=== PATIENT | female | born 1995 | race Caucasian/White ===

== ENCOUNTER 2016-07-11 08:53 | Emergency (ER) | payer BC, OTHER ==
[2016-07-11 09:17] VITALS: RESP 16; TEMP 97.5
--- NOTE | 2016-07-11 09:27 | PDOC ---
Ear Complaints HPI - General Chief Complaint: Ear Problem / Injury Stated Complaint: RIGHT EAR PRESSURE Date Seen by Provider: 07/11/16 Time Seen by Provider: 09:14 Source: POSITIVE: Patient Exam Limitations: POSITIVE: No limitations Nurse's Notes Reviewed & Considered: Yes - History of Present Illness Initial Comments: Patient comes in today with chief complaint of pain in her bilateral ears right greater than left. She was recently swimming yesterday, now with pressure in her ears and difficulty hearing. Location: Both Ears Timing: REPORTS: Gradual, Getting Worse Severity: Mild Quality: REPORTS: Dullness Context: REPORTS: Other (swimming) Modifying Factors: REPORTS: None Associated Symptoms: REPORTS: Hearing Loss Similar Symptoms Previously: No Recent Care Received: REPORTS: Denies Any Prior Injuries Related to Current Complaint?: No - Patient Home Medications Home Medications: Home Medications Levothyroxine Sodium 88 mcg PO DAILY 07/11/16 - Patient Allergies Allergies/Adverse Reactions: Allergies Allergy/AdvReac Type Severity Reaction Status Date / Time No Known Allergies Allergy Verified 07/11/16 08:59 Past Medical History - heen HEENT History: Denies History Cardiovascular History: Denies History Respiratory History: Denies History Gastrointestinal History: GERD Additional Gastrointestinal History: excessive acid Genitourinary History: Denies History Endocrine History: Hypothyroidism Musculoskeletal History: Denies History Prosthesis or Implant: No Neurological History: Denies History Blood Disorders: Denies History Psychiatric History: Denies History Female Reproductive History: Denies History LMP: 19TH Obstetrical History: Labor Cancer History: Denies History In Past Year Been Physically Harmed or Verbally Threatened: No History of MDRO: No Tobacco Use: Never Smoker Alcohol Use: None Substance Use Type: None Previous Surgical History: Yes Type / Date of Surgery: L WRIST, TONSILS AND ADENOIDS Anesthesia Reactions: No Significant Family History: No pertinent family hx ROS - Limitations ROS Limitations: No Limitations Constitution: REPORTS: Denies Symptoms Cardiovascular: REPORTS: Denies Cardiac Symptoms Respiratory: REPORTS: Denies Resp Symptoms Neurological: REPORTS: Denies Neuro Symptoms Gastrointestinal: REPORTS: Denies GI Symptoms Endocrine: REPORTS: Denies Symptoms Musculoskeletal: REPORTS: Denies MS Symptoms Genitourinary: REPORTS: Denies Symptoms Eyes: REPORTS: Denies Symptoms ENT: REPORTS: Hearing Loss Skin: REPORTS: Denies Skin Symptoms Lympathic: REPORTS: Denies Lympathic Symptoms Immunologic: POSITIVE: Denies Symptoms Psychiatric: POSITIVE: Denies Psych Symptoms Ear Complaint Exam - General Appearance General Appearance: POSITIVE: Alert, Cooperative, No Acute Distress, No Evidence of Trauma - HEENT Head / Face: POSITIVE: Atraumatic, Normal Inspection, No Facial Swelling Eyes: POSITIVE: Inspection Normal, PERRL, EOM's Intact, Eyelids Uninjured, Sclera Normal Ears: POSITIVE: TM Obscured (Bilateral TM obscured from cerumen) Nose: POSITIVE: Inspection Normal, No Apparent Trauma, Nares Normal, No CSF Leak Oropharynx: POSITIVE: External Inspection Nml, Pharynx Inspect. Nml, Airway Intact, Voice Normal, Moist Mucous Membranes Dental: POSITIVE: No Dental Injury - Respiratory Respiratory: POSITIVE: No Respiratory Distress, Breath Sounds Normal, Chest Non- Tender - Cardiovascular Cardiovascular: POSITIVE: Regular Rate and Rhythm, Heart Sounds Normal - Abdomen Abdomen: Soft: (All Quadrants), Normal Bowel Sounds: (All Quadrants), Denies Tenderness: (All Quadrants) - Skin Skin: POSITIVE: Normal Color, No Skin Rash - Neurological / Psychological Neurological: POSITIVE: Affect Apporpriate, Oriented X3 Procedure - Ear Procedure Ear Procedure: POSITIVE: Removal of Cerumen, Right, Left, With Ear Curette Ear Medications Instilled: POSITIVE: Right, Left, Other (Ciprodex otic drops.) Ear Complaints Progress - Patient's Progress Pain Medication Addressed: POSITIVE: No Status: POSITIVE: Improved MDM / ED Course: Patient had sodium and curetted free from her bilateral external auditory canal. There was some small amount of bleeding present postprocedural. She received Ciprodex bilateral external auditory canals. Instructions for Ciprodex twice a day for 3 days. Assessment: Hearing loss secondary to cerumen impaction. Hearing was improved after curetted of cerumen. Next Plan: Discharge home, Ciprodex twice a day for 3 days. - Consult Counseled: POSITIVE: Patient, Family, RE: DX, RE: Need for F/U Patient Care Time - Estimated PCT Patient Care Time (In Minutes): 15 Vital Signs - VS Reviewed Vital Signs Reviewed: Yes Discharge Clinical Impression: Excessive cerumen in ear canal Discharge Disposition: Discharged to Home Condition: Good Patient Instructions Given at Discharge: Cerumen Impaction (ED)
[2016-07-11] MEDS ORDERED: CIPROFLOXACIN HCL/DEXAMETH 7.5 ML OTIC SUSP ONE (09:34)
[2016-07-11] MEDS ORDERED: CIPROFLOXACIN HCL/DEXAMETH 7.5 ML OTIC SUSP EACH EAR SCH (21:00)
== END 2016-07-11 09:57 | disposition home or self-care (01) ==
LOC: ER 08:53
DX: H61.23 Impacted cerumen, bilateral (principal); H92.03 Otalgia, bilateral
CPT/HCPCS: 69210; 99282

== ENCOUNTER 2016-07-26 20:04 | Emergency (ER) | payer BC, OTHER ==
[2016-07-26] MEDS ORDERED: HYDROcodone-APAP 5 MG -325 MG TABLET PO ONE (20:13)
[2016-07-26] MEDS ORDERED: LORazepam 1 MG TABLET PO ONE (20:13)
[2016-07-26] MEDS ORDERED: DIPH,PERTUSS,TET(ADACEL) VAC/PF 0.5 ML (Tdap) IM ONE (20:17)
--- NOTE | 2016-07-26 20:19 | PDOC ---
Neck Pain / Injury HPI - General Chief Complaint: Neck / Back Complaint Stated Complaint: NECK PAIN/INJURY Date Seen by Provider: 07/26/16 Time Seen by Provider: 20:14 Source: POSITIVE: Patient, Spouse Exam Limitations: POSITIVE: No limitations Nurse's Notes Reviewed & Considered: Yes - History of Present Illness Initial Comments: Patient comes in today complaining of left-sided neck pain. Patient was helping her nima at approximately 1900 hrs.. She was pulling on cable attached to a limb while he was cutting the limb. She was attempting to keep him from falling on the neighbor's house. Something gave way suddenly, she stumbled backwards hitting the middle finger of her left hand resulting in a small abrasion at the level of her fingernail, hit the right side of her head on the grill that was present and then had left-sided neck pain. She denies any distal neurological signs such as tingling or weakness. She is not current on her tetanus status. Body Location Affected: REPORTS: Neck Timing: REPORTS: Abrupt Severity: Moderate Quality: REPORTS: "Pain", Stabbing Duration: 1 hour Context: REPORTS: Activity, Fall Recent Injury: REPORTS: No Location at Time of Onset: REPORTS: Home Concurrent Injuries: REPORTS: Neck, Other (Abrasion on her finger.) Modifying Factors: improves with: Movement (Movement makes the pain worse), Rest (Rest makes the pain better) Associated Symptoms: REPORTS: Denies symptoms Similar Symptoms Previously: No Recent Care Received: REPORTS: Denies Any Prior Injuries Related to Current Complaint?: No - Patient Home Medications Home Medications: Home Medications Levothyroxine Sodium 88 mcg PO DAILY 07/11/16 - Patient Allergies Allergies/Adverse Reactions: Allergies Allergy/AdvReac Type Severity Reaction Status Date / Time No Known Allergies Allergy Verified 07/26/16 20:12 Past Medical History - heen HEENT History: Denies History Cardiovascular History: Denies History Respiratory History: Denies History Gastrointestinal History: GERD Additional Gastrointestinal History: excessive acid Genitourinary History: Denies History Endocrine History: Hypothyroidism Musculoskeletal History: Denies History Prosthesis or Implant: No Neurological History: Denies History Blood Disorders: Denies History Psychiatric History: Denies History Cancer History: Denies History History of MDRO: No Alcohol Use: None Substance Use Type: None Previous Surgical History: Yes Type / Date of Surgery: L WRIST, TONSILS AND ADENOIDS Anesthesia Reactions: No Significant Family History: No pertinent family hx ROS - Limitations ROS Limitations: No Limitations Constitution: REPORTS: Denies Symptoms Cardiovascular: REPORTS: Denies Cardiac Symptoms Respiratory: REPORTS: Denies Resp Symptoms Neurological: REPORTS: Denies Neuro Symptoms Gastrointestinal: REPORTS: Denies GI Symptoms Endocrine: REPORTS: Denies Symptoms Musculoskeletal: REPORTS: Neck Pain Genitourinary: REPORTS: Denies Symptoms Eyes: REPORTS: Denies Symptoms ENT: REPORTS: Denies Symptoms Skin: REPORTS: Denies Skin Symptoms Lympathic: REPORTS: Denies Lympathic Symptoms Immunologic: POSITIVE: Denies Symptoms Psychiatric: POSITIVE: Denies Psych Symptoms Neck Pain/Injury Exam - General Appearance General Appearance: REPORTS: Alert, Cooperative, No Evidence of Trauma, Moderate Distress - HEENT HEENT: POSITIVE: Head Inspection Nml, Eyes Inspection Nml, Ears Inspection Nml, Nose Inspection Nml, Oral/Dental Inspect. Nml, Pharynx Inspect. Nml, PERRL, EOMI - Pupil Size Pupil Size: 4 mm: Bilateral - Neck Neck: POSITIVE: Muscle Spasm (Paraspinal muscles of the left neck and the sternocleidomastoid on the left.), Decreased ROM - Back Back: REPORTS: Normal Inspection, No CVA Tenderness, Non Tender, Painless ROM - Respiratory / CVS Respiratory / CVS: POSITIVE: No Respiratory Distress - Abdomen Abdomen: Denies Tenderness: (All Quadrants) - Skin Skin: REPORTS: Intact, Normal For Race, Warm, Dry, No Rash - Extremities Extremity Assessment: Normal ROM: (ALL), No Edema: (ALL), Normal Inspection: ( ALL) - Neurological / Psychological Neuro / Psych: POSITIVE: Oriented x3, Motor Normal, Sensation Normal, Upper And Bottom Lacer Hand Normal, Upper And Bottom Lacer Hand Symmetrical Neck Pain/Injury Progress - Patient's Progress Pain Medication Addressed: POSITIVE: Yes Re-Examine Time: 21:20 Status: POSITIVE: Improved MDM / ED Course: Patient was examined, she received a tetanus update, Campbell, and Ativan. Her symptoms significantly improved. Assessment: Neck spasm. Next Plan: Discharge home prescription for Campbell and Ativan provided. - Consult Counseled: POSITIVE: Patient, Family, RE: DX Patient Care Time - Estimated PCT Patient Care Time (In Minutes): 20 Vital Signs - Recent Vital Signs Vital Signs: Vital Signs (Last 8 hours) Temp Pulse Resp BP Pulse Ox 07/26/16 20:04 98.0 F 88 16 119/88 98 - VS Reviewed Vital Signs Reviewed: Yes Discharge Clinical Impression: Neck pain Discharge Disposition: Discharged to Home Condition: Stable Patient Instructions Given at Discharge: Cervical Strain (ED)
[2016-07-26 20:55] VITALS: RESP 16; TEMP 98
[2016-07-26] MEDS ORDERED: LORazepam 1 MG TABLET PO SCH (21:30)
[2016-07-26] MEDS ORDERED: HYDROcodone-APAP 5 MG -325 MG TABLET PO SCH (21:30)
== END 2016-07-26 22:00 | disposition home or self-care (01) ==
LOC: ER 20:04
DX: M54.2 Cervicalgia (principal); S60.413A Abrasion of left middle finger, initial encounter; W01.0XXA Fall on same level from slipping, tripping and stumbling without subsequent striking against object, initial encounter
CPT/HCPCS: 90471; 99282

== ENCOUNTER 2016-11-21 14:42 | Emergency (ER) | payer BC, OTHER ==
[2016-11-21 15:05] LABS: BILIRUBIN,URINE NEGATIVE (NEG); CLARITY,URINE Slightly Cloudy (CLEAR); COLOR,URINE YELLOW; GLUCOSE, URINE (UA) NEGATIVE (NEG); NITRATE,URINE NEGATIVE (NEG); OCCULT BLOOD,URINE LARGE (NEG); PROTEIN,URINE 100 mg/dl (NEG); UROBILINOGEN,URINE 0.2 EU/dL (0.2)
--- NOTE | 2016-11-21 15:06 | PDOC ---
Female Problem HPI - General Chief Complaint: Genitourinary Complaint Stated Complaint: I think i have a UTI Date Seen by Provider: 11/21/16 Time Seen by Provider: 15:02 Source: POSITIVE: Patient Exam Limitations: POSITIVE: No limitations Nurse's Notes Reviewed & Considered: Yes - History of Present Illness Initial Comments: This very pleasant 21-year-old female is complaining of dysuria. Patient with history of several days of increasing pain with urination comes in for evaluation. She had initially taken [id number] Azo and stopped yesterday. Subsequent to stopping Azo she said increasing dysuria. She denies any fever chills sweats, no nausea vomiting or diarrhea, no chest pain or coughs , no shortness of breath, no rashes, no hematuria. He denies any back pain or flank pain. Body Location Affected: REPORTS: Abdomen Timing: REPORTS: Gradual Duration: <24 hours Severity: Moderate Quality: REPORTS: Cramping, "Pain", Sharpness Location of Pain: REPORTS: Pelvic Pressure, Burning : 1 Para: 1 Sexual History: REPORTS: Active Urinary Symptoms: REPORTS: Frequent Urination, Discomfort w/ Urination, Burning w/ Urination, Urinary Urgency, Painful Urination Recent Care Received: REPORTS: Denies Any Prior Injuries Related to Current Complaint?: No - Patient Home Medications Home Medications: Home Medications Levothyroxine Sodium 88 mcg PO DAILY 07/11/16 - Patient Allergies Allergies/Adverse Reactions: Allergies Allergy/AdvReac Type Severity Reaction Status Date / Time No Known Allergies Allergy Verified 07/26/16 20:12 Past Medical History - heen HEENT History: Denies History Cardiovascular History: Denies History Respiratory History: Denies History Gastrointestinal History: GERD Additional Gastrointestinal History: excessive acid Genitourinary History: Other (please comment) Additional Genitourinary History: Patient states she feels like her bladder is full, and she has pain with uriniation. Endocrine History: Hypothyroidism Musculoskeletal History: Denies History Prosthesis or Implant: No Neurological History: Denies History Blood Disorders: Denies History Psychiatric History: Denies History Cancer History: Denies History In Past Year Been Physically Harmed or Verbally Threatened: No History of MDRO: No Tobacco Use: Never Smoker Alcohol Use: None Substance Use Type: None Previous Surgical History: Yes Type / Date of Surgery: L WRIST, TONSILS AND ADENOIDS Anesthesia Reactions: No Significant Family History: No pertinent family hx ROS - Limitations ROS Limitations: No Limitations Constitution: REPORTS: Denies Symptoms Cardiovascular: REPORTS: Denies Cardiac Symptoms Respiratory: REPORTS: Denies Resp Symptoms Neurological: REPORTS: Denies Neuro Symptoms Gastrointestinal: REPORTS: Denies GI Symptoms Endocrine: REPORTS: Denies Symptoms Musculoskeletal: REPORTS: Denies MS Symptoms Genitourinary: REPORTS: Dysuria Eyes: REPORTS: Denies Symptoms ENT: REPORTS: Denies Symptoms Skin: REPORTS: Denies Skin Symptoms Lympathic: REPORTS: Denies Lympathic Symptoms Immunologic: POSITIVE: Denies Symptoms Psychiatric: POSITIVE: Denies Psych Symptoms Female Genitourinary Exam - General Appearance General Appearance: POSITIVE: Alert, Cooperative, No Acute Distress, No Evidence of Trauma - HEENT HEENT: POSITIVE: Head Inspection Nml, Eyes Inspection Nml, Ears Inspection Nml, Nose Inspection Nml, Oral/Dental Inspect. Nml, Pharynx Inspect. Nml, PERRL, EOMI - Neck Neck: POSITIVE: Normal Inspection, No Apparent Injury - Respiratory Respiratory: POSITIVE: No Respiratory Distress, Breath Sounds Normal, Chest Non- Tender - Cardiovascular Cardiovascular: POSITIVE: Regular Rate and Rhythm, Heart Sounds Normal, Equal Pulses, Strong Pulses - Abdomen Abdomen: POSITIVE: Soft, Normal Bowel Sounds, Tenderness (Suprapubic and mild right lower quadrant tenderness.) - Back Back: POSITIVE: Normal Inspection - Skin Skin: POSITIVE: Intact, Normal For Race, Warm, Dry, No Rash - Extremities Extremity: Non-Tender: (All Extremities), Normal ROM: (All Extremities), Normal Inspection: (All Extremities) - Neurological / Psychological Neurological: POSITIVE: Oriented X3, tipple tender Normal As Tested, Motor Normal, Sensation Normal, 5, 6 Female Genitourinary Progress - Results Reviewed by me Lab Results Reviewed: Yes Lab Results:: Laboratory Results 11/21/16 Range/Units 14:45 Ur Collection Type Clean catch urine Urine Color Yellow Urine Clarity Slightly cloudy (CLEAR) Urine pH 7.0 (5.0-8.5) Ur Specific [place] 1.025 (1.005-1.030) Urine Protein 100 (NEG) mg/dl Urine Glucose (UA) Negative (NEG) mg/dL Urine Ketones Negative (NEG) Urine Occult Blood Large H (NEG) Urine Nitrate Negative (NEG) Urine Bilirubin Negative (NEG) Urine Urobilinogen 0.2 (0.2) EU/dL Ur Leukocyte Esterase Small (NEG) Urine RBC 10-15 (NONE) /hpf Urine WBC 25-30 (NONE) Ur Squamous Epith Cells Few (NONE) Ur Renal Epithelial Cell None (NONE) Urine Crystals None Urine Bacteria Moderate (NONE) Urine Casts None (NONE) Urine Mucus Few (NONE) Urine Trichomonas None (NONE) Urine Yeast None (NONE) Ur Culture Indicated? Culture set - Patient's Progress Pain Medication Addressed: POSITIVE: Not Applicable Re-Examine Time: 15:27 Status: POSITIVE: Improved MDM / ED Course: Patient was examined, he urine sent to the lab for laboratory studies. Findings: Urinalysis shows bacteria present and leukocyte esterase. Assessment: Urinary tract infection. Plan: Macrobid twice a day for 10 days and follow-up with primary care physician. - Consult Counseled: POSITIVE: Patient, RE: Lab Results, RE: DX, RE: Need for F/U Patient Care Time - Estimated PCT Patient Care Time (In Minutes): 20 Vital Signs - VS Reviewed Vital Signs Reviewed: Yes Discharge Clinical Impression: Urinary tract infectious disease Discharge Disposition: Discharged to Home Condition: Stable Patient Instructions Given at Discharge: Urinary Tract Infection in Women (ED)
[2016-11-21 15:11] LABS: URINE SAMPLE TYPE CLEAN CATCH URINE
[2016-11-21 15:15] LABS: BACTERIA,URINE MODERATE; SQUAMOUS EPITHELIAL CELL,UR FEW; WBC,URINE 25-30
[2016-11-21] MEDS ORDERED: NITROFURANTOIN/NITROFURAN MAC 100 MG CAPSULE PO ONE (15:24)
[2016-11-21 15:34] VITALS: RESP 16; TEMP 98.4
== END 2016-11-21 15:40 | disposition home or self-care (01) ==
LOC: ER 14:42
DX: N39.0 Urinary tract infection, site not specified (principal); R10.2 Pelvic and perineal pain; R10.31 Right lower quadrant pain; R30.0 Dysuria
CPT/HCPCS: 81001; 81003; 87077; 87088; 87185; 87186; 99282